=== PATIENT | female | born 1995 | race Caucasian/White ===

== ENCOUNTER → 2017-12-27 11:42 | Outpatient (CLI) | payer SELFPAY ==
[2017-12-27 12:41] LABS: Basophils % 0.3 % (0.1-2.0); Eosinophils # 0.1 K/mm3 (0.0-0.4); Eosinophils % 1.1 % (0.1-12.0); Hematocrit 36.7 % (37.0-47.0); Hemoglobin 11.9 g/dL (12.2-16.2); Lymphocytes # 1.7 K/mm3 (0.7-4.5); Lymphocytes % 24.7 K/mm3 (10-50); Mean Corpuscular HGB Conc 32.4 g/dL (31.8-35.4); Mean Corpuscular Hemoglobin 27.7 pg (27.0-31.2); Mean Corpuscular Volume 85.4 fl (81-99); Mean Platelet Volume 7.1 fl (7.4-10.4); Monocytes # 0.3 K/mm3 (0.1-1.0); Monocytes % 4.9 % (1.7-9.3); Neutrophils # 4.8 K/mm3 (1.8-7.8); Neutrophils % 68.9 % (37.0-80.0); Platelet Count 197 K/mm3 (142-424)
[2017-12-28 07:14] LABS: HIV Screen 4th Generation wRfx Non Reactive (Non Reactive)
[2017-12-28 09:34] LABS: Hepatitis B Surface Antigen Negative (Negative); Hepatitis C Antibody 0.1 s/co ratio (0.0-0.9); Rapid Plasma Reagin Ab Titer Non Reactive (NonRea<1:1); Rubella Antibodies, IgG <0.90 index (Immune >0.99)
== END ==
PROVIDERS: PCP Nurse Practitioner Obstetrics & Gynecology; Visit Provider Nurse Practitioner Obstetrics & Gynecology
DX: Z34.90 Encounter for supervision of normal pregnancy, unspecified, unspecified trimester (principal)
CPT/HCPCS: 36415; 85025; 86592; 86703; 86762; 86850; 87340; 87380; G0432

== ENCOUNTER → 2023-01-17 13:11 | Outpatient (CLI) | payer SELFPAY ==
--- NOTE | 2023-01-17 13:22 | US_ITS ---
FINAL REPORT CLINICAL HISTORY: US OB Complete 20 wk+ Anatomy Scan please use anatomy template FINDINGS: This exam was technically difficult due to positioning. There is a single live intrauterine gestation. Presentation is breech. The cervix is closed and measures 3.4 cm. Placenta is anterior, grade 1. Heart rate identified and measured at 149 beats per minute. movement is noted. Three-vessel cord with satisfactory umbilical cord insertion. Four-chamber heart is noted. brain and ventricles are unremarkable. Chest and diaphragm are unremarkable. ABDOMEN: Both kidneys are unremarkable. Stomach is unremarkable. SPINE: No anomalies identified. Both arms and legs noted. AMNIOTIC FLUID: Appropriate amount. MEASUREMENTS: ULTRASOUND AGE: 21 weeks 4 days. GESTATION AGE: 22 weeks 2 days. ESTIMATED WEIGHT: 460 g GROWTH PERCENTILE: 26% LMP percentile BPD: 4.8 cm corresponding with 20 weeks 5 days. OFD: 7.0 cm corresponding with 22 weeks 5 days. HC: 18.9 cm corresponding with 21 weeks 2 days. AC: 16.8 cm corresponding with 21 weeks 6 days. FL: 3.9 cm corresponding with 22 weeks 3 days. CEREBELLUM: 2.2 cm corresponding with 21 weeks 6 days. HUMERUS: 3.4 cm corresponding with 21 weeks 4 days. HC/AC: 1.13 CI: 69% FL/BPD: 80% FL/AC: 23% IMPRESSION: Single living IUP with an ultrasound age of 21 weeks 4 days. No gross anomalies noted. Reviewed, Interpreted and Dictated by Alek Trotter III, MD Transcribed by Layla Neumann Authenticated and [facility]
[2023-01-17 14:43] LABS: Basophils % 0.4 % (0.1-2.0); Eosinophils # 0.1 K/mm3 (0.0-0.4); Eosinophils % 0.9 % (0.1-12.0); Hematocrit 34.9 % (37.0-47.0); Hemoglobin 11.4 g/dL (12.2-16.2); Lymphocytes % 23.2 % (10-50); Mean Corpuscular HGB Conc 32.7 g/dL (31.8-35.4); Mean Corpuscular Hemoglobin 28.6 pg (27.0-31.2); Mean Corpuscular Volume 87.4 fl (81-99); Mean Platelet Volume 7.7 fl (7.4-10.4); Monocytes # 0.4 K/mm3 (0.1-1.0); Monocytes % 4.5 % (1.7-9.3); Neutrophils % 70.9 % (37.0-80.0); Platelet Count 234 K/mm3 (142-424); Red Cell Distribution Width 13.2 % (11.5-17.5); White Blood Count 8.4 K/mm3 (4.8-10.8)
[2023-01-19 08:17] LABS: Rubella Antibodies, IgG <0.90 index (Immune >0.99)
== END ==
PROVIDERS: PCP Nurse Practitioner Family; Visit Provider Obstetrics & Gynecology
DX: Z34.90 Encounter for supervision of normal pregnancy, unspecified, unspecified trimester (principal); Z36.3 Encounter for antenatal screening for malformations; Z3A.20 20 weeks gestation of pregnancy
CPT/HCPCS: 36415; 76811; 85025; 86762; 86850

== ENCOUNTER → 2023-03-27 12:30 | Outpatient (CLI) | payer SELFPAY ==
--- NOTE | 2023-03-27 12:34 | US_ITS ---
PROCEDURE: US OB BIOPHYSICAL PROFILE CLINICAL INDICATION: sga COMPARISON: FINDINGS: From her last menstrual period she is 32weeks 1day. The following parameters are obtained: Average ultrasound age is 30weeks 6days. Estimated due date by ultrasound is 05/30/2023. Estimated weight is 3lb 7.93oz, 1586 grams.. Sixth percentile. heart rate: 134bpm bpm. BPD: 31weeks 5days OFD: 31weeks 5days HC: 31 weeks 3 days AC: 30 weeks 5 days FL: 29 weeks 6 days HC/AC: 1.07 Cephalic index: 0.76 FL/BPD: 0.73 FL/AC: 0.21 Amniotic fluid index: 9.28cm Qualitative AFV: 2 breathing movements: 2 Gross body movements: 2 Tone: 2 Biophysical profile score: 8 Doppler evaluation of the umbilical artery: SD ratio: 2.73 Resistive index: 0.63 No obvious anomalies evident.Kidneys, three-vessel cord appear normal. Four chamber view, stomach, profile, nasion Placenta: Anterior grade 1 Cervix: 3.3 cm IMPRESSION: 1. Viable fetus in the cephalic presentation with an anterior placenta grade 1. 2. Fluid is within normal limits. Biophysical profile is 8/8. Good breathing movement was seen. 3. The fetus is small at 6 percentile. AC is just 1 week behind. Dictated by: Zack Mujica MD 03/27/2023 17:32 Zack Mujica MD in [place] 03/27/2023 17:32
[2023-03-27 14:57] LABS: Hematocrit 31.6 % (37.0-47.0); Hemoglobin 10.6 g/dL (12.2-16.2)
== END ==
LOC: RAD 12:30
PROVIDERS: PCP Nurse Practitioner Family; Visit Provider Obstetrics & Gynecology
DX: O36.5990 Maternal care for other known or suspected poor fetal growth, unspecified trimester, not applicable or unspecified (principal); Z3A.27 27 weeks gestation of pregnancy
CPT/HCPCS: 36415; 76816; 76819; 76820; 85014; 85018

== ENCOUNTER 2023-05-04 04:48 | Inpatient (IN) | payer SELFPAY ==
[2023-05-04] VITALS (9 sets, daily range): BP systolic 96–119; BP diastolic 53–64; PULSE 60–79; RESP 15–20; TEMP 36.4–36.9; O2SAT 97–100; BMI 32.3; BMI 32.4
[2023-05-04 05:42] LABS: Microscopic, Urine URINE MICROSCOPIC (MICROSCOPIC)
[2023-05-04 05:49] LABS: Basophils % 0.3 % (0.1-2.0); Eosinophils # 0.1 K/mm3 (0.0-0.4); Hematocrit 33.4 % (37.0-47.0); Hemoglobin 10.6 g/dL (12.2-16.2); Lymphocytes # 2.1 K/mm3 (0.7-4.5); Lymphocytes % 30.1 % (10-50); Mean Corpuscular HGB Conc 31.6 g/dL (31.8-35.4); Mean Corpuscular Hemoglobin 27.3 pg (27.0-31.2); Mean Corpuscular Volume 86.3 fl (81-99); Mean Platelet Volume 7.9 fl (7.4-10.4); Monocytes # 0.5 K/mm3 (0.1-1.0); Monocytes % 6.7 % (1.7-9.3); Neutrophils # 4.3 K/mm3 (1.8-7.8); Neutrophils % 61.9 % (37.0-80.0); Platelet Count 216 K/mm3 (142-424); Red Blood Count 3.87 M/mm3 (4.20-5.40); Red Cell Distribution Width 12.7 % (11.5-17.5); White Blood Count 6.9 K/mm3 (4.8-10.8)
[2023-05-04 05:52] LABS: Appearance,Urine CLEAR (Clear); Bilirubin,Urine Negative (Negative); Blood, Urine Negative (Negative); Color,Urine YELLOW (Yellow); Glucose,Urine (UA) Negative (Negative); Ketones,Urine Negative (Negative); Leukocyte Esterase,Urine Negative (Negative); Nitrate,Urine Negative (Negative); PH,Urine 6.5 (5.0-8.5); Protein,Urine Negative (Negative)
[2023-05-04 06:04] LABS: Alanine Aminotransferase 25 U/L (12-78); Albumin Level 3.5 g/dl (3.5-5.0); Albumin/Globulin Ratio 1.3 (1.1-1.8); Alkaline Phosphatase 143 U/L (38-126); Anion Gap 9.5 mEq/L (5-15); Aspartate Amino Transferase 40 U/L (14-36); Bilirubin,Total 0.2 mg/dl (0.2-1.3); Blood Urea Nitrogen 8 mg/dl (7-17); Calcium 8.1 mg/dl (8.4-10.2); Carbon Dioxide 23 mmol/L (22.0-30.0); Chloride 108 mmol/L (98-107); Creatinine Clearance Estimated 184 mL/min (50-200); Estimated Glomerular Filt Rate 98 ml/min (>60); GFR (African American) 119 ML/MIN (>60); Globulin 2.7 g/dL (1.3-3.2); Glucose 80 mg/dl (74-100); Potassium 3.5 mmoL/L (3.5-5.1); Sodium 137 mmol/L (136-145); Total Protein,Serum 6.2 g/dl (6.3-8.2)
[2023-05-04 06:07] LABS: Amphetamine/Metha Screen,Urine Negative ng/ml (<1000)
[2023-05-04 06:08] LABS: Barbiturates Screen,Urine Negative ng/ml (<200); Benzodiazepines Screen,Urine Negative ng/ml (<200)
[2023-05-04 06:09] LABS: Cannabinoid Screen,Urine Negative ng/ml (<50)
[2023-05-04 06:10] LABS: Cocaine Screen,Urine Negative ng/ml (<300); Methadone Screen,Urine Negative ng/ml (<300)
[2023-05-04 06:11] LABS: Opiate Screen,Urine Negative ng/ml (<300)
[2023-05-04 06:12] LABS: Phencyclidine Screen,Urine Negative ng/ml (<25)
[2023-05-04 06:18] LABS: Squamous Epithelial Cell,Urine Occasional #/hpf (0-5); WBC,Urine Occasional #/hpf (0-3)
--- NOTE | 2023-05-04 07:06 | P.PNANES_ITS ---
[facility] Disclaimer: The information contained in this section may have been updated after the patient was seen, as this information can be updated by other users. Medical History Chip ancestry Thrombophlebitis during Surgical History History of section History of cholecystectomy Family History (Updated 05/04/23 @ 05:40 by Zoraida Tran RN) Other No significant family history Social History Smoking Status: Never smoker alcohol intake: never substance use type: denies use current occupational status: unemployed Travel in the last 8 weeks: None housing: apartment current occupational exposures/hazards: No caffeine: No H Anesthesia Checklist Patient Identification Patient Identification: Arm Band Structural Data Admitted From: Inpatient Planned Operative Procedure/s: Repeat C/S Consent for Planned Operative Procedure(s) Verified: Yes Verified Documents: Surgical Consent and History and Physical NPO Status Verified Time NPO: 00:00 Additional verifications Anesthesia Reactions: No Airway Assessment C-Spine Mobility Assessed: Yes TMJ Mobility Assessed: Yes Dentition: Good Dentition Neurological Assessment Level of Consciousness: Awake and Alert Anesthesia Plan Anesthesia Risk discussed: Yes Anesthesia Plan: Verified ASA Class: II Anesthesia Type: Spinal (with Bilateral TAP Block)
--- NOTE | 2023-05-04 07:15 | EXP.OB.APHP ---
OB - H&P: HPI Antepartum History of Present Illness Chief complaint: Repeat History of present illness: Mrs Hope Navarro is a 28 yo at 37w4d who presents to [facility] for scheduled repeat . Growth ultrasound with PDC 04/13/23 demonstrated EFW 22 %ile, AC 9 %ile. [facility] recommended delivery 37-38 weeks. She has had good care. She was a transfer of care from [place] in December 2022. MARGIE based off of 7 week ultrasound. History of Present Criteria for establishing EDC:: LMP confirmed by 1st trimester US care: good care Ultrasounds: normal mid trimester US Obstetrical complications: growth restriction Medical complications: none Labs Blood type: A (+) positive Rubella: nonimmune RPR/VDRL: nonreactive HBsAG: negative PFSH [facility] Disclaimer: The information contained in this section may have been updated after the patient was seen, as this information can be updated by other users. Medical History (Updated 05/04/23 @ 07:24 by Glenny Ying DO) Sikh ancestry with 37 weeks completed gestation Thrombophlebitis during Surgical History History of section History of cholecystectomy Family History Other No significant family history Social History Smoking Status: Never smoker alcohol intake: never substance use type: denies use current occupational status: unemployed Travel in the last 8 weeks: None housing: apartment current occupational exposures/hazards: No caffeine: No Review of Systems Review of Systems Review of systems:: pertinent systems reviewed and negative unless documented below Meds Home Medications and Allergies Home Medications Medication Instructions Recorded Confirmed Type prenat.vits,lei,cym-yueg-rrywh 1 tab PO DAILY Supplement 12/22/22 05/04/23 History omeprazole 20 mg capsule,delayed 20 mg PO DAILY Heartburn 05/04/23 05/04/23 History release New Prescriptions to Start Prescriptions: Allergies Allergy/AdvReac Type Severity Reaction Status Date / Time Sulfa (Sulfonamide Allergy Arrythymia Verified 05/04/23 06:53 Antibiotics) unknown Allergy Mild Uncoded 04/27/23 10:26 OB - H&P: Exam Physical Exam Vital signs: Temp Pulse Resp BP Pulse Ox O2 Del Method 98.3 F 74 17 108/56 L 100 Room Air 05/04/23 05:59 05/04/23 05:59 05/04/23 05:59 05/04/23 05:59 05/04/23 05:59 05/04/23 05:59 Constitutional no acute distress Routine HEENT Exam Head: Present normocephalic and atraumatic Eye: Absent conjunctivae pink ENT: Present mucous membranes moist and dentition normal Routine Neck Exam Present full ROM Routine Respiratory Exam Present CTA bilaterally and normal respiratory effort Routine Cardiovascular Exam Present RRR Routine Abdominal Exam Present soft (Gravid); Absent tenderness Routine Rectal Exam Patient deferred: visual exam Routine Exam Patient deferred: external exam Routine Neurological Exam Present alert, oriented X3 and moving all extremities Routine Psychiatric Exam Present normal affect and cooperative Detailed Labor and Delivery Exam Membranes: intact Baseline heart rate: 125 monitor accelerations: Present monitor decelerations: None longterm variability: Moderate (11-25) OB - Results Labs Labs: Short CBC 05/04/23 Range/Units 05:18 WBC 6.9 (4.8-10.8) K/mm3 Hgb 10.6 L (12.2-16.2) g/dL Hct 33.4 L (37.0-47.0) % Plt Count 216 (142-424) K/mm3 BMP 05/04/23 05:20 Sodium 137 Potassium 3.5 Chloride 108 H Carbon Dioxide 23 BUN 8 Creatinine 0.70 Glucose 80 Calcium 8.1 L Liver Function 05/04/23 Range/Units 05:20 Total Bilirubin 0.2 (0.2-1.3) mg/dl AST 40 H (14-36) U/L ALT 25 (12-78) U/L Alkaline P
--- NOTE | 2023-05-04 07:41 | HMH.PHAINT1 ---
Pharmacy Intervention Comments: MEDICATION RECONCILIATION COMPLETED ON PATIENT USING EXTERNAL FILL HISTORY FROM PHARMACY. -CHLOE MEIER, SCOTTD
--- NOTE | 2023-05-04 08:37 | EXP.OP.NOTE ---
Date of procedure: 05/04/23 Pre-op Diagnosis:: 1. with 37 weeks completed gestation 2. growth restriction 3. History of section 4. History of intrauterine growth restriction in prior , currently 5. Rubella non-immune status, antepartum 6. Orthodoxy ancestry Post-op Diagnosis:: 1. with 37 weeks completed gestation 2. growth restriction 3. History of section 4. History of intrauterine growth restriction in prior , currently 5. Rubella non-immune status, antepartum 6. Orthodoxy ancestry Procedure performed:: Repeat Low Transverse section Surgeon:: Glenny Ying DO Licensed Life And Health Agent(s):: Zack Mujica MD SURGERY AID:: Other Anesthesia: spinal Estimated blood loss (mL): 400 Clinical Note:: Mrs Hope Navarro is a 28 yo at 37w4d who presents to [facility] for scheduled repeat . Growth ultrasound with PDC 04/13/23 demonstrated EFW 22 %ile, AC 9 %ile. [facility] recommended delivery 37-38 weeks. She has had good care. She was a transfer of care from [place] in December 2022. MARGIE based off of 7 week ultrasound. Operative findings:: 1. Live female baby (baby's name is Savana) weighing 5 lb 12 oz, APGARs 8, 9 2. Nuchal cord x 1 was easily reduced 3. Grossly normal appearing uterus, bilateral fallopian tubes and bilateral ovaries Operative note:: The risks, benefits and alternatives of the procedure were reviewed with the patient. Informed consent was obtained. Patient was taken to the operating room where spinal anesthesia was placed. The patient received 2 grams of Ancef preoperatively. Patient was placed in dorsal supine position with a leftward tilt. SCDs in place. Loza catheter had been placed and was draining clear urine prior to the start of the procedure. heart tones were obtained. Patient was then prepped and draped in normal sterile fashion. Allis clamp test was performed to ensure adequate anesthesia. A Pfannenstiel skin incision was made 2 cm above pubic symphysis, above prior Pfannenstiel scar. This was carried through to underlying layer of fascia. Fascia was incised in midline, extended laterally with Marino scissors. Superior aspect of fascial incision was grasped with two Tesfaye clamps, elevated up, and rectus muscle dissected off bluntly and sharply with Marino scissors. Inferior aspect of fascial incision was grasped with two Tesfaye clamps, elevated up, and rectus muscle dissected off bluntly and sharply with Marino scissors. The rectus muscle was then in the midline and the peritoneum was entered bluntly with a digit. Peritoneal incision was then extended superiorly and inferiorly with good visualization of the bladder. Hernan retractor was inserted. Metzenbaum scissors were used to create Bladder flap. The lower uterine segment was incised in a transverse fashion. Clear amniotic fluid was noted. Head was delivered without difficulty. Nuchal x 1 was easily reduced. Remainder of body was delivered without difficulty. Mouth and nares were bulb suctioned. Spontaneous cry was noted. Delayed cord clamping was performed for 60 seconds. The umbilical cord was clamped and cut. The was handed to awaiting pediatric staff in stable condition. Dr. Bird was present. Apgars were 8(1 min), 9(5 min). Cord blood was obtained. Gentle traction on the umbilical cord and uterine fundal massage delivered the placenta. Placenta was intact. Uterus was cleared of all clots and debris with a moist laparotomy sponge. Corners of the uterine incision were grasped with Allis clamps. The uterine incision was reapproximated with # 1 Vicryl suture in a running, locked stitch. Second layer of the same stitch was used to imbricate the incision. 0 Vicryl suture was used in a running, locking stitch to reapproximate vesicouterine peritoneum. Excellent hemostasis was noted. Posterior cul-de-sac was cleaned with moist laparotomy sponge. Gutters cleared of all clots and debris with
--- NOTE | 2023-05-04 11:00 | EXP.ANES.II ---
[facility] Anesthesia Record Part II Anesthesia Record Part II Discharge Time: 08:50 Destination: Obstetric PACU nurse assessment reviewed?: Yes Patient Condition:: Good Anesthesia Complications:: None Swallowing reflex intact?: Yes Cyanosis?: No Blood Pressure: 110/53 Pulse Rate: 66 Temperature: 97.6 F Mental Status: Alert & Oriented Pain level:: 0 Nausea and/or vomitting:: None Intake, IV Amount: 0
[2023-05-04 12:55] LABS: Microscopic,Cath URINE MICROSCOPIC (MICROSCOPIC)
[2023-05-04 14:41] LABS: Appearance,Urine/Cath CLEAR (Clear); Bilirubin,Cath Negative (Negative); Blood, Urine/Cath Negative (Negative); Color,Urine/Cath YELLOW (Yellow); Glucose,Urine/Cath (UA) Negative (Negative); Ketones,Urine/Cath TRACE (Negative); Leukocyte Esterase,Cath Negative (Negative); Nitrate,Cath Negative (Negative); PH,Urine/Cath 7.5 (5.0-8.5); Protein,Urine/Cath Negative (Negative); Urobilinogen,Cath 0.2 EU/dl (0.2)
[2023-05-04 14:57] LABS: WBC,Urine/Cath Occasional #/hpf (0-3)
--- NOTE | 2023-05-04 17:56 | EXP.NB.FU ---
Date: 05/04/23 Time: 08:45 Comment:: [place] resuscitation note: delivered via secondary to IUGR and multiple repeat C-sections. Uncomplicated noted, retained on the abdomen for 1 minute to enhance umbilical flow. Handed to pediatrics crying. Resuscitation included towel drying, stimulation. Initial Apgars 8, 1 off for tone and color, initial physical exam unremarkable. 5-minute 9, transition to nursery in good condition. [place] Follow-Up Objective Objective: Last Vital Signs:: Last Vital Signs Temp 97.5 F L 05/04/23 16:34 Pulse 60 05/04/23 16:34 Resp 20 05/04/23 16:34 BP 113/56 L 05/04/23 16:34 Pulse Ox 99 05/04/23 16:34 O2 Del Method Room Air 05/04/23 09:30 Test Results for Last 24 Hours: Laboratory Results - last 24 hr 05/04/23 05:18: WBC 6.9, RBC 3.87 L, Hgb 10.6 L, Hct 33.4 L, MCV 86.3, MCH 27.3, MCHC 31.6 L, RDW 12.7, Plt Count 216, MPV 7.9, Neut % (Auto) 61.9, Lymph % (Auto) 30.1, [place] % (Auto) 6.7, Eos % (Auto) 1.0, Baso % (Auto) 0.3, Neut # (Auto) 4.3, Lymph # (Auto) 2.1, [place] # (Auto) 0.5, Eos # (Auto) 0.1, Baso # (Auto) 0.0, Urine Color Yellow, Urine Appearance Clear, Urine pH 6.5, Ur Specific [place] 1.020, Urine Protein Negative, Urine Glucose (UA) Negative, Urine Ketones Negative, Urine Blood Negative, Urine Nitrate Negative, Urine Bilirubin Negative, Urine Urobilinogen 1.0, Ur Leukocyte Esterase Negative, Urine RBC None, Urine WBC Occasional, Ur Squamous Epith Cells Occasional, Urine Bacteria None, Urine Opiates Screen Negative, Urine Methadone Screen Negative, Ur Barbituates Screen Negative, Ur Phencyclidine Scrn Negative, Ur Amphetamines Screen Negative, U Benzodiazepines Scrn Negative, Urine Cocaine Screen Negative, U Marijuana (THC) Screen Negative, Blood Type A Positive, Antibody Screen Negative, Crossmatch (AHG) See Detail 05/04/23 05:20: Sodium 137, Potassium 3.5, Chloride 108 H, Carbon Dioxide 23, Anion Gap 9.5, BUN 8, Creatinine 0.70, Estimated Creat Clear 184, Estimated GFR 98, Est GFR ( Amer) 119, Glucose 80, Calcium 8.1 L, Total Bilirubin 0.2, AST 40 H, ALT 25, Alkaline Phosphatase 143 H, Total Protein 6.2 L, Albumin 3.5, Globulin 2.7, Albumin/Globulin Ratio 1.3 05/04/23 07:25: Urine Color Yellow, Urine Appearance Clear, Urine pH 7.5, Ur Specific [place] 1.010, Urine Protein Negative, Urine Glucose (UA) Negative, Urine Ketones Trace, Urine Blood Negative, Urine Nitrate Negative, Urine Bilirubin Negative, Urine Urobilinogen 0.2, Ur Leukocyte Esterase Negative, Urine RBC None, Urine WBC Occasional, Ur Squamous Epith Cells None, Urine Bacteria None [facility] Plan Plan Medications: Current Medications Acetaminophen (Acetaminophen 500mg Tab) 1,000 mg PO Q6H [place] Stop: 06/03/23 08:59 Last Admin: 05/04/23 17:09 Dose: 1,000 mg Al Hydrox/Mg Hydrox/Simethicone (Aluminum/Magnesium/Simethicone 30ml Udc) 30 ml PO Q4HP PRN PRN Reason: Dyspepsia Stop: 06/03/23 08:51 Benzocaine/Menthol (Benzocaine-Menthol [place] 56gm Can) 0 gm TP NEEDED PRN PRN Reason: Vaginal Irritation Stop: 06/03/23 08:51 Diphenhydramine HCl (Diphenhydramine 25mg Capsule) 25 mg PO Q6HP PRN PRN Reason: Itching Stop: 06/03/23 08:51 Emollient Ointment (Lanolin Cream 40gm) 0 gm TP NEEDED PRN PRN Reason: Breast Tenderness Stop: 06/03/23 08:51 Glycerin (Glycerin Adult 3gm Supp) 3 gm RC NEEDED PRN PRN Reason: Constipation Stop: 06/03/23 08:51 Hydromorphone HCl (Hydromorphone 2mg/Ml Syringe) 2 mg IV Q3HP PRN PRN Reason: Severe Pain (7-10) Stop: 05/05/23 08:52 Hydromorphone HCl (Hydromorphone 2mg/Ml Syringe) 1 mg IV Q3HP PRN PRN Reason: Moderate Pain (4-6) Stop: 05/05/23 08:52 Sodium Chloride (Sod Chlor 0.9% 250ml Bag) 250 mls @ 25 mls/hr IV .Q10H [facility] Stop: 05/05/23 04:59 Lactated Ringer's (Lactated Ringer's 1000 Ml Bag) 1,000 mls @ 125 mls/hr IV .Q8H [place] Stop: 06/03/23 08:59 Last Admin: 05/04/23 09:30 Dose: 125 mls/hr Cefazolin Sodium 2 gm/ Sodium (Chloride) 10
[2023-05-05 00:09] VITALS: BP 97/56; PULSE 64; RESP 17; TEMP 36.7
[2023-05-05 04:08] VITALS: BP 96/50; PULSE 69; RESP 17; TEMP 36.8; O2SAT 98
[2023-05-05 06:49] LABS: Basophils % 0.3 % (0.1-2.0); Eosinophils # 0.1 K/mm3 (0.0-0.4); Eosinophils % 0.6 % (0.1-12.0); Hematocrit 29.8 % (37.0-47.0); Hemoglobin 9.8 g/dL (12.2-16.2); Lymphocytes # 1.6 K/mm3 (0.7-4.5); Lymphocytes % 17.3 % (10-50); Mean Corpuscular Hemoglobin 28.3 pg (27.0-31.2); Monocytes # 0.7 K/mm3 (0.1-1.0); Monocytes % 7.1 % (1.7-9.3); Neutrophils % 74.7 % (37.0-80.0); Platelet Count 207 K/mm3 (142-424); Red Blood Count 3.47 M/mm3 (4.20-5.40); Red Cell Distribution Width 12.7 % (11.5-17.5); White Blood Count 9.4 K/mm3 (4.8-10.8)
--- NOTE | 2023-05-05 08:12 | EXP.DC.SUM ---
General Admission date:: 05/04/23 Discharge date: 05/05/23 HPI HPI HPI: POD # 1 s/p RLTCS Patient resting comfortably this morning. Pain controlled. She is breast feeding. Lochia is appropriate. She is voiding without difficulty and passing flatus. Tolerating regular diet. Denies fever/chills, chest pain and shortness of breath. No headaches or vision changes. Denies swelling. Ambulating well ad gary. She is concerned about constipation. She states she was horribly constipated after her last . Hospital Course Hospital Course Hospital Course: Mrs Hope Navarro is a 28 yo at 37w4d who presents to [facility] for scheduled repeat . Growth ultrasound with PDC 04/13/23 demonstrated EFW 22 %ile, AC 9 %ile. [facility] recommended delivery 37-38 weeks. She has had good care. She was a transfer of care from [place] in December 2022. MARGIE based off of 7 week ultrasound. She underwent repeat on 05/04/23. She delivered a live baby girl (Savana) weighing 5 lb 12 oz. APGARs 8, 9. EBL 400 mL She did well postperatively. Pain controlled. Appropriate lochia. She is breast feeding. Voiding without difficulty and passing flatus. Tolerating regular diet and ambulating well ad gary. Vital signs stable, afebrile. Heart regular rate and rhythm. Lungs clear to auscultation. Abdomen soft, appropriate tenderness to palpation. No lower extremity edema. Normal hospital course. She was discharged to home on POD # 1. Discussed Miralax BID and increasing water intake and fresh fruits to help with constipation. She was instructed to follow-up in the office in 2 weeks or sooner if needed. Exam Data for Last 24 hours Vital signs and Labs for Last 24 Hours: Temp Pulse Resp BP Pulse Ox O2 Del Method 98.2 F 69 17 96/50 L 98 Room Air 05/05/23 04:08 05/05/23 04:08 05/05/23 04:08 05/05/23 04:08 05/05/23 04:08 05/05/23 04:08 Laboratory Results - last 24 hr 05/04/23 07:25: Urine Color Yellow, Urine Appearance Clear, Urine pH 7.5, Ur Specific [place] 1.010, Urine Protein Negative, Urine Glucose (UA) Negative, Urine Ketones Trace, Urine Blood Negative, Urine Nitrate Negative, Urine Bilirubin Negative, Urine Urobilinogen 0.2, Ur Leukocyte Esterase Negative, Urine RBC None, Urine WBC Occasional, Ur Squamous Epith Cells None, Urine Bacteria None 05/05/23 06:18: WBC 9.4 D, RBC 3.47 L, Hgb 9.8 L, Hct 29.8 L, MCV 86.0, MCH 28.3, MCHC 33.0, RDW 12.7, Plt Count 207, MPV 8.0, Neut % (Auto) 74.7, Lymph % (Auto) 17.3, [place] % (Auto) 7.1, Eos % (Auto) 0.6, Baso % (Auto) 0.3, Neut # (Auto) 7.0, Lymph # (Auto) 1.6, [place] # (Auto) 0.7, Eos # (Auto) 0.1, Baso # (Auto) 0.0 I & O for Last 24 hours: Intake & Output 05/02/23 05/03/23 05/04/23 05/05/23 23:59 23:59 23:59 23:59 Intake Total 0 / 0 Output Total 1800 / 1800 Balance -1800 / -1800 Weight 219 lb 0.009 oz Constitutional Constitutional: no acute distress *Routine HEENT Exam Head: Present normocephalic and atraumatic Eye: Absent conjunctivae pink ENT: Present mucous membranes moist and dentition normal *Routine Neck Exam Neck: Present full ROM *Routine Respiratory Exam Respiratory: Present CTA bilaterally and normal respiratory effort *Routine Cardiovascular Exam Cardiovascular: Present RRR *Routine Abdominal Exam Abdominal: Present soft and normoactive bowel sounds; Absent tenderness or distended Comments: Uterine fundus firm and below umbilicus, pfannenstiel incision clean/dry/intact with steri strips in place *Routine Rectal Exam Patient deferred: visual exam *Routine Exam Patient deferred: external exam *Routine Extremities Exam Extremities: Absent edema or calf tenderness *Routine Neurological Exam Neurological: Present alert, oriented X3 and moving all extremities Routine Psychiatric Exam Psychiatric: Present normal affect and cooperative Results Data Completed and Pending Labs on day of discharge: Labs from last 24 hours 05/05/23 05/04/23 06:18 07:2
[2023-05-05 08:20] VITALS: BP 98/52; PULSE 69; RESP 20; TEMP 36.8; O2SAT 99
== END 2023-05-05 12:05 | disposition home or self-care (01) | DRG 788 ==
PROVIDERS: Admitting Provider Obstetrics & Gynecology; PCP Nurse Practitioner Family; Visit Provider Obstetrics & Gynecology
DX: O34.211 Maternal care for low transverse scar from previous cesarean delivery (principal); Z3A.37 37 weeks gestation of pregnancy; Z37.0 Single live birth; O69.81X0 Labor and delivery complicated by cord around neck, without compression, not applicable or unspecified; N85.8 Other specified noninflammatory disorders of uterus; O36.5930 Maternal care for other known or suspected poor fetal growth, third trimester, not applicable or unspecified
CPT/HCPCS: 59514; 36415; 59025; 80053; 80305; 81001; 82800; 85025; 86850; 94761; 96374; C9290; G0283; J2405

== ENCOUNTER → 2023-05-22 09:51 | Outpatient (CLI) | payer SELFPAY ==
[2023-05-22 10:10] LABS: Basophils # 0.1 K/mm3 (0-0.2); Basophils % 1.1 % (0.1-2.0); Eosinophils # 0.3 K/mm3 (0.0-0.4); Eosinophils % 5.1 % (0.1-12.0); Hematocrit 39.2 % (37.0-47.0); Hemoglobin 12.7 g/dL (12.2-16.2); Lymphocytes # 2.9 K/mm3 (0.7-4.5); Lymphocytes % 46.7 % (10-50); Mean Corpuscular HGB Conc 32.4 g/dL (31.8-35.4); Mean Corpuscular Hemoglobin 27.6 pg (27.0-31.2); Mean Corpuscular Volume 85.3 fl (81-99); Mean Platelet Volume 7.5 fl (7.4-10.4); Monocytes # 0.4 K/mm3 (0.1-1.0); Monocytes % 6.2 % (1.7-9.3); Neutrophils # 2.5 K/mm3 (1.8-7.8); Neutrophils % 40.9 % (37.0-80.0); Platelet Count 285 K/mm3 (142-424); Red Blood Count 4.59 M/mm3 (4.20-5.40); Red Cell Distribution Width 12.1 % (11.5-17.5); White Blood Count 6.2 K/mm3 (4.8-10.8)
[2023-05-22 11:03] LABS: Alanine Aminotransferase 22 U/L (12-78); Albumin Level 4.4 g/dl (3.5-5.0); Albumin/Globulin Ratio 1.5 (1.1-1.8); Alkaline Phosphatase 69 U/L (38-126); Anion Gap 10.5 mEq/L (5-15); Aspartate Amino Transferase 29 U/L (14-36); Bilirubin,Total 0.3 mg/dl (0.2-1.3); Blood Urea Nitrogen 14 mg/dl (7-17); Calcium 9.7 mg/dl (8.4-10.2); Carbon Dioxide 30 mmol/L (22.0-30.0); Chloride 103 mmol/L (98-107); Estimated Glomerular Filt Rate 53 ml/min (>60); GFR (African American) 64 ML/MIN (>60); Glucose 87 mg/dl (74-100); Potassium 4.5 mmoL/L (3.5-5.1); Sodium 139 mmol/L (136-145); Total Protein,Serum 7.4 g/dl (6.3-8.2)
== END ==
LOC: LAB 09:52
PROVIDERS: PCP Nurse Practitioner Family; Visit Provider Obstetrics & Gynecology
DX: N93.9 Abnormal uterine and vaginal bleeding, unspecified (principal)
CPT/HCPCS: 36415; 80053; 85025

== ENCOUNTER → 2023-05-23 09:29 | Outpatient (CLI) | payer SELFPAY ==
--- NOTE | 2023-05-23 09:32 | US_ITS ---
PROCEDURE: US PELVIC CLINICAL INDICATION: Pelvic pain 2 weeks post COMPARISON: No exams were available for comparison FINDINGS: Transabdominal sonographic images of the pelvis were obtained. The uterus is retroverted and retroflexed and measures 7.9 cm x 5.9 cm x 8.3 cm. There is fluid within the endometrial cavity that appears to be blood. It measures up to 3.9 cm at the fundus. The rest of the endometrial cavity appears filled with clot 1 cm wide. Right ovary measures 2.3 cm x 2.1 cm x 1.4 cm Left ovary measures 4.1 cm x 2.2 cm x 1.7 cm. Both ovaries are seen and appear normal. There is Doppler flow to both ovaries. No fluid in the cul-de-sac. IMPRESSION: 1. Retroverted retroflexed uterus with what appears to be blood clot within the endometrial cavity. It measures up to 4 cm at the fundus. 2. Both ovaries are seen and appear normal. 3. There is fluid-filled bowel around the right ovary. 4. If the patient is not improving, a transvaginal ultrasound may allow for a better look at the endometrial cavity and Caesarean section scar. Dictated by: Zack Mujica MD 05/23/2023 16:52 Zack Mujica MD in [place] 05/23/2023 16:52
== END ==
LOC: RAD 09:30
PROVIDERS: PCP Nurse Practitioner Family; Visit Provider Obstetrics & Gynecology
DX: R10.2 Pelvic and perineal pain (principal); O86.12 Endometritis following delivery
CPT/HCPCS: 76856

== ENCOUNTER → 2023-05-24 14:20 | Outpatient (CLI) | payer SELFPAY ==
--- NOTE | 2023-05-24 14:22 | CA_ITS ---
APPROVED REPORT EXAM: Comprehensive 2D, Doppler, and color-flow Echocardiogram Medication Aid: Kandy Del Cid RVT Ht: 5 ft 9 in Wt: 203lbs BSA: 2.08 BP: 108/65 mmHg Indications: cp,palps,fatigue,soa,hypotension 2D Dimensions LVOT 2.14 cm (M/F) 1.5-2.5 LA Volume 41.40 mL LA Volume Index 19.90 mL/m2 (M/F) 16-34 M-Mode Dimensions RVDd 1.74 cm (0.9-2.6) LA Diam 2.72 cm (1.9-4.0) LVDd 4.66 cm (3.5-5.7) Ao Diam 2.72 cm (2.0-3.7) LVDs 2.98 cm (3.5-5.7) IVSd 0.94 cm (0.6-1.1) PWd 0.57 cm (0.6-1.1) EF (Teich) 65.70% FS 36.10% EDV (Teich) 100.30 mL TAPSE 2.48 (<1.7) ESV (Teich) 34.40 mL LV Diastology E Decel Time 270.00 (160-240 msec) E/A Ratio 1.7 MED E' 11.20 (< 7 cm/sec) E'/MED E' Ratio 7.13 (>14) LAT E' 17.90 (<10 cm/sec) E/LAT E' Ratio 4.46 (>14) Aortic Valve AO Peak GR. 4.20 mmHg Mitral Valve MV E Max Long. 80.00 (40-130 cm/s) MV A Velocity 47.00 (40-130 cm/s) E/A Ratio 1.70 MV Decel. Time 270.00 (160-240 ms) MV PHT 79.00 ms Pulmonary Valve PV Peak Velocity 91.00 (50-150 cm/s) Tricuspid Valve TR P. Velocity 210.00 cm/s RAP Estimate 10.00 mmHg RVSP 27.60 mmHg Left Ventricle The left ventricle is normal size. The left ventricular systolic function is normal. The left ventricular ejection fraction is within the normal range. There is normal left ventricular wall thickness. There is normal LV segmental wall motion. The left ventricular diastolic function is normal. LVEF is 55-60%. Right Ventricle Right ventricle is mildly dilated. The right ventricular systolic function is normal. Atria The left atrium size is normal. The right atrium size is normal. There is no Doppler evidence of interatrial shunt. Aortic Valve The aortic valve is normal in structure. There is no aortic valvular stenosis. No aortic regurgitation is present. Mitral Valve The mitral valve is normal in structure. No evidence of mitral valve stenosis. There is no mitral valve regurgitation noted. Tricuspid Valve The tricuspid valve leaflets are thin and pliable. Trace tricuspid regurgitation. RVSP is normal. Pulmonic Valve The pulmonary valve is normal in structure. Trace pulmonic regurgitation. Great Vessels The aortic root is normal in size. IVC is normal in size and collapses >50% with inspiration. Pericardium There is no pericardial effusion. Other Information Study Quality: Adequate Conclusion Normal biventricular systolic function. Mild RV dilatation. No significant valvular disease. Electronically signed by : Siomara Hylton, 05/25/2023 13:38:06
[2023-05-24 15:29] LABS: Basophils # 0.1 K/mm3 (0-0.2); Basophils % 0.8 % (0.1-2.0); Eosinophils # 0.4 K/mm3 (0.0-0.4); Eosinophils % 5.4 % (0.1-12.0); Hematocrit 41.3 % (37.0-47.0); Lymphocytes % 45.8 % (10-50); Mean Corpuscular HGB Conc 31.5 g/dL (31.8-35.4); Mean Corpuscular Hemoglobin 27.8 pg (27.0-31.2); Mean Corpuscular Volume 88.2 fl (81-99); Mean Platelet Volume 7.5 fl (7.4-10.4); Monocytes # 0.4 K/mm3 (0.1-1.0); Monocytes % 6.1 % (1.7-9.3); Neutrophils # 2.8 K/mm3 (1.8-7.8); Neutrophils % 41.9 % (37.0-80.0); Platelet Count 258 K/mm3 (142-424); Red Blood Count 4.69 M/mm3 (4.20-5.40); White Blood Count 6.6 K/mm3 (4.8-10.8)
[2023-05-24 15:43] LABS: D-Dimer 0.89 ug/mL (0.0-0.5)
[2023-05-24 16:03] LABS: Alanine Aminotransferase 20 U/L (12-78); Albumin Level 4.2 g/dl (3.5-5.0); Alkaline Phosphatase 61 U/L (38-126); Anion Gap 11.3 mEq/L (5-15); Aspartate Amino Transferase 28 U/L (14-36); Bilirubin,Indirect 0.2 mg/dL (0.0-0.9); Bilirubin,Total 0.2 mg/dl (0.2-1.3); Bilirubin,Unconjugated 0.4 mg/dL (0.0-1.1); Blood Urea Nitrogen 13 mg/dl (7-17); Calcium 9.3 mg/dl (8.4-10.2); Carbon Dioxide 30 mmol/L (22.0-30.0); Chloride 105 mmol/L (98-107); Estimated Glomerular Filt Rate 53 ml/min (>60); GFR (African American) 64 ML/MIN (>60); Glucose 78 mg/dl (74-100); Potassium 4.3 mmoL/L (3.5-5.1); Sodium 142 mmol/L (136-145)
[2023-05-24 16:15] LABS: Troponin I < 0.01 ng/ml (0.00-0.034)
[2023-05-24 16:19] LABS: Free T4 (Free Thyroxine) 0.86 ng/dl (0.78-2.19)
[2023-05-24 16:32] LABS: Thyroid Stimulating Hormone 0.56 uIU/mL (0.465-4.68)
== END ==
LOC: LAB 14:21
PROVIDERS: PCP Nurse Practitioner Family; Visit Provider Internal Medicine
DX: R06.02 Shortness of breath (principal); R07.89 Other chest pain; R00.2 Palpitations; R42 Dizziness and giddiness; R51.9 Headache, unspecified; I63.9 Cerebral infarction, unspecified
CPT/HCPCS: 36415; 80048; 80076; 84439; 84443; 84484; 85025; 85378; 93306

== ENCOUNTER → 2023-05-29 08:34 | Outpatient (CLI) | payer SELFPAY ==
--- NOTE | 2023-05-29 08:40 | CT_ITS ---
FINAL REPORT TECHNIQUE: The patient was injected with IV contrast. Axial images were obtained through the chest in a PE protocol. 3-D reconstruction images were also performed. Individualized dose reduction techniques using automated exposure control or adjustment of the MA and/or KV according to patient's size were employed. CLINICAL HISTORY: abnormal ekg, chest pain COMPARISON: None FINDINGS: Mediastinal vasculature is adequately opacified. No pulmonary artery filling defects are identified to suggest PE. There is no aortic dissection. There is no axillary adenopathy. There is no hilar or mediastinal adenopathy. The heart size is normal. There is no pericardial or pleural effusion. No suspicious infiltrate or nodule is identified. There is minimal scarring in the posterior aspect of the left upper lobe Limited images of the upper abdomen are unremarkable. IMPRESSION: No pulmonary embolus or dissection. Reviewed, Interpreted and Dictated by See Nichole MD Transcribed by Lorie Solorzano Authenticated and [facility]
== END ==
PROVIDERS: PCP Nurse Practitioner Family; Visit Provider Nurse Practitioner Family
DX: R06.02 Shortness of breath (principal); R07.89 Other chest pain; R00.2 Palpitations; R42 Dizziness and giddiness; R94.31 Abnormal electrocardiogram [ECG] [EKG]
CPT/HCPCS: 71275; 93225; Q9967

== ENCOUNTER 2023-05-30 06:01 | Day surgery (SDC) | payer SELFPAY ==
[2023-05-30 06:27] VITALS: BMI 30.1
[2023-05-30 06:36] VITALS: BP 111/70; PULSE 64; RESP 16; TEMP 36.9; O2SAT 100
--- NOTE | 2023-05-30 06:50 | EXP.ANES.CKL ---
[facility] Disclaimer: The information contained in this section may have been updated after the patient was seen, as this information can be updated by other users. Medical History IVON (acute kidney injury) Restorationist ancestry Feeling of chest tightness Headache Maternal care for other known or suspected poor growth, third trimester, not applicable or unspecified Postoperative pain Shortness of breath Thrombophlebitis during Surgical History History of section History of cholecystectomy Family History Other No significant family history Social History (Updated 05/30/23 @ 06:32 by Jennifer Gray RN) Smoking Status: Never smoker alcohol intake: never substance use type: denies use current occupational status: unemployed Travel in the last 8 weeks: None household members: family housing: apartment lives independently: No marital status: education level: middle school service: No care home: No current occupational exposures/hazards: No caffeine: No do you feel safe at home: Yes victim of physical abuse: No victim of emotional abuse: No victim of sexual abuse: No would you like helpful sources: No [facility] Anesthesia Checklist Patient Identification Patient Identification: Arm Band and Verbal (Name & ) Structural Data Admitted From: Home Planned Operative Procedure/s: D&C Consent for Planned Operative Procedure(s) Verified: Yes Verified Documents: Surgical Consent Additional verifications Anesthesia Reactions: No Hx Blood Transfusions: No Blood Transfusion Reaction: No Cardiovascular Assessment Peripheral Edema: No Airway Assessment Mallampati Score:: Class I C-Spine Mobility Assessed: Yes TMJ Mobility Assessed: Yes Dentition: Edentulous Neurological Assessment Level of Consciousness: Awake and Alert Hx Seizures: No Numbness or tingling in extremities: No Anesthesia Plan Anesthesia Risk discussed: Yes ASA Class: II Anesthesia Type: IV sedation Preoperative Comments Pre-Operative Comments: Pt requesting sedation vs general anesthesia
[2023-05-30 07:02] LABS: Urine Pregnancy, HCG Qual. Negative (Negative)
--- NOTE | 2023-05-30 07:22 | EXP.HP ---
History of Present Illness *Admission Date: 05/30/23 *Reason for visit:: pelvic pressure, RLQ/suprapubic pain *History of present illness: Mrs Hope Navarro is a 28 yo who presents to [facility] for scheduled procedure. She underwent repeat on 05/04/23. She delivered a live baby girl (Savana) weighing 5 lb 12 oz. APGARs 8, 9. EBL 400 mL. She did well postperatively. Pain controlled. Appropriate lochia while in the hospital. She is breast feeding. About 1 week after delivery she complained of pelvic pressure, RLQ/suprapubic pain and passage of large black clots. No fever/chills. She was treated with a course of antibiotics for possible endometritis. Symptoms did not improve. She reported continued symptoms and passage of black clots. She was treated with course of Cytotec with little relief. She also complains of associated fatigue, weakness and headaches. She also reported shortness of air with activity and chest tightness when she lies down. She also admitted cardiac symptoms have been present for at least a year and were present prior to . She was referred to cardiology and evaluation was performed. She was given cardiac clearance for surgery. Pelvic ultrasound 05/23/23 demonstrated retroverted retroflexed uterus with what appears to be blood clot within the endometrial cavity. It measures up to 4 cm at the fundus. Both ovaries are seen and appear normal. [facility] Disclaimer: The information contained in this section may have been updated after the patient was seen, as this information can be updated by other users. Medical History (Updated 05/30/23 @ 07:33 by Glenny Ying DO) IVON (acute kidney injury) Chip ancestry Feeling of chest tightness Headache Maternal care for other known or suspected poor growth, third trimester, not applicable or unspecified Pelvic pain Pelvic pressure in female Postoperative pain state Shortness of breath Thrombophlebitis during Surgical History (Updated 05/30/23 @ 07:33 by Glenny Ying DO) History of section History of cholecystectomy S/P Family History Other No significant family history Social History Smoking Status: Never smoker alcohol intake: never substance use type: denies use current occupational status: unemployed Travel in the last 8 weeks: None household members: family housing: apartment lives independently: No marital status: education level: middle school service: No care home: No current occupational exposures/hazards: No caffeine: No do you feel safe at home: Yes victim of physical abuse: No victim of emotional abuse: No victim of sexual abuse: No would you like helpful sources: No Review of Systems Review of Systems Review of systems:: pertinent systems reviewed and negative unless documented below Constitutional Constitutional: Reports fatigue, Reports headache(s), Reports lethargy and Reports weakness ENT Ears, Nose, Mouth, and Throat: Reports headache(s) *Cardiovascular Comments: + shortness of air, + chest tightness when lying supine *Genitourinary Genitourinary: Reports pelvic pain *Neurologic Neurologic: Reports headache(s) and Reports weakness Endocrine Endocrine: Reports fatigue Meds Home Medications and Allergies Home Medications Medication Instructions Recorded Confirmed Type vit no.95-ferrous 1 tab PO DAILY Supplement 05/04/23 05/30/23 History fumarate 28 mg-folic acid 800 mcg tablet () ibuprofen 400 mg tablet 800 mg PO Q8H Pain 05/30/23 05/30/23 History misoprostol 200 mcg tablet 200 mcg PO Q6H bleeding 05/30/23 05/30/23 History (Cytotec) New Prescriptions to Start Prescriptions: Allergies Allergy/AdvReac Type Severity Reaction Status Date / Time Sulfa (Sulfon
[2023-05-30 08:35] VITALS: BP 101/58; PULSE 70; RESP 17; TEMP 36.2; O2SAT 98
[2023-05-30 08:45] VITALS: BP 96/54; PULSE 67; RESP 16; O2SAT 98
[2023-05-30 08:55] VITALS: BP 97/63; PULSE 71; RESP 16; O2SAT 99
[2023-05-30 09:05] VITALS: BP 101/61; PULSE 57; RESP 16; TEMP 36.6; O2SAT 99
--- NOTE | 2023-05-30 09:14 | EXP.OP.NOTE ---
Date of procedure: 05/30/23 Pre-op Diagnosis:: 1. state, 3 weeks 5 days s/p repeat 2. RLQ pain 3. Pelvic pain 4. Pelvic pressure Post-op Diagnosis:: 1. state, 3 weeks 5 days s/p repeat 2. RLQ pain 3. Pelvic pain 4. Pelvic pressure Procedure performed:: Dilation and curettage Surgeon:: Glenny Ying DO Arcade Game Technician(s):: N/a CHISEL TRIMMER:: Other Anesthesia: MAC Estimated blood loss (mL): 5 Clinical Note:: Mrs Hope Navarro is a 28 yo who presents to [facility] for scheduled procedure. She underwent repeat on 05/04/23. She delivered a live baby girl (Savana) weighing 5 lb 12 oz. APGARs 8, 9. EBL 400 mL. She did well postperatively. Pain controlled. Appropriate lochia while in the hospital. She is breast feeding. About 1 week after delivery she complained of pelvic pressure, RLQ/suprapubic pain and passage of large black clots. No fever/chills. She was treated with a course of antibiotics for possible endometritis. Symptoms did not improve. She reported continued symptoms and passage of black clots. She was treated with course of Cytotec with little relief. She also complains of associated fatigue, weakness and headaches. She also reported shortness of air with activity and chest tightness when she lies down. She also admitted cardiac symptoms have been present for at least a year and were present prior to . She was referred to cardiology and evaluation was performed. She was given cardiac clearance for surgery. Pelvic ultrasound 05/23/23 demonstrated retroverted retroflexed uterus with what appears to be blood clot within the endometrial cavity. It measures up to 4 cm at the fundus. Both ovaries are seen and appear normal. Operative findings:: 1. Uterus retroverted, normal size and shape. No adnexal masses palpated 2. Moderate amount of red and burgundy colored fluid with endometrial tissue removed from endometrial cavity Operative note:: Risks, benefits and alternatives were discussed with the patient. Risks include but are not limited to bleeding, infection, uterine perforation and VTE. Patient voiced understanding and agreed to proceed. She was wheeled back to the operating room and placed under MAC without difficulty. She was placed in dorsal lithotomy position and prepped and draped in the normal sterile fashion. Straight catheter was used to drain the bladder. A bimanual exam was performed. A weighted Auvard was placed in the vaginal vault. Single tooth tenaculum was placed on anterior lip of the cervix. Uterus sounded to 10. Sequential Kendrick dilators were used to dilate the cervical os. A medium size sharp curette was inserted through the cervix into the uterine cavity and endometrium was curetted with a systematic back and forth movement in a 360 degree manner. All endometrial curettings will be sent to pathology for review. Instruments were removed from the vagina. Tenaculum site was noted to be hemostatic. Patient was transported to recovery room in stable condition. Patient will be discharged home when awake and ambulating. She was given postop instructions as well as instructions to follow-up in the office in 2 weeks at which time pathology will be reviewed. Condition: stable Disposition: same day Specimens:: 1. Endometrial curettings Complications:: None
== END 2023-05-30 09:10 | disposition home or self-care (01) ==
PROVIDERS: PCP Nurse Practitioner Family; Visit Provider Obstetrics & Gynecology
PROC: (CPT 58120; principal; 2023-05-30 07:30)
DX: N85.4 Malposition of uterus (principal); Z39.2 Encounter for routine postpartum follow-up; Z98.891 History of uterine scar from previous surgery; R10.2 Pelvic and perineal pain; O75.4 Other complications of obstetric surgery and procedures; R06.02 Shortness of breath; N85.00 Endometrial hyperplasia, unspecified; N17.9 Acute kidney failure, unspecified
CPT/HCPCS: 59160; 81025; J2405

== ENCOUNTER → 2023-06-07 06:06 | Outpatient (CLI) | payer SELFPAY ==
--- NOTE | 2023-06-07 06:17 | NM_ITS ---
APPROVED REPORT Exam: Nuclear Stress Test Indication: chest pain..soa..palpitations..fatigue..family hx Patient Location: Outpatient Stress Tech: Valentina Arceo [place] Tech:Melissa Weiss, PASHA RT(R)(N) Ht: 5 ft 10 in Wt: 202 lbs Bra Size: 34a HR: 70 bpm BP: 116/79 mmHg BSA: 2.10 m2 Rhythm: NSR TID: 1.05 BMI: 28.9 History: chest pain..soa..palpitations..fatigue..family hx.. Procedure: Patient exercised on Eric protocol 7:16 minutes and sec, resting heart rate 70 bpm, resting blood pressure 116/79 mmHg, with exercise maximum heart rate achived was 164 bpm which is 86 % of the maximum predicted heart rate and blood pressure was 140/80 mmHg. Test was stopped due to fatigue. Patient denied any complaint of chest pain. Patient has Average exercise capacity, achieved 10.1 METs of workload on treadmill, the blood pressure response to exercise was Normal. Patient is currently . Cardiac Stress and Resting SPECT Images: Cardiac Stress and Resting SPECT images were obtained using technetium 99m Myoview 31.3 mCi stress and 10.57 mCi at rest. This is a technically difficult study in the setting of significant overlap of soft tissue and diaphragm with the cardiac borders, as well as close proximity of the GI tract radiotracer uptake to the cardiac borders. These may affect the diagnostic interpretation of the study findings. Raw images also demonstrate incidental finding of mild radiotracer uptake in breast tissues bilaterally. Resting and stress imaging in supine position demonstrate a medium sized, moderate, fixed perfusion defect in the basal inferior wall, as well as in the basal anterior LV wall. These defects are no longer visualized with prone stress imaging, with the exception of persistence of a minimal perfusion defect anteriorly. These findings are suggestive suggestive of soft tissue attenuation and diaphragmatic attenuation. Gated imaging demonstrates normal global and regional LV systolic function. LVEF is calculated at 54%. Conclusion: This is a technically difficult study in the setting of significant overlap of soft tissue and diaphragm with the cardiac borders, as well as close proximity of the GI tract radiotracer uptake to the cardiac borders. These may affect the diagnostic interpretation of the study findings. Raw images also demonstrate incidental finding of mild radiotracer uptake in breast tissues bilaterally. Soft tissue attenuation and diaphragmatic attenuation are present. No definite fixed or reversible perfusion defect. Gated imaging demonstrates normal global and regional LV systolic function. LVEF is calculated at 54%. Electronically signed by : Siomara Hylton, 06/12/2023 00:30:28
--- NOTE | 2023-06-07 08:49 | CA_ITS ---
APPROVED REPORT Exam: Exercise Treadmill Technologist: Valentina Gale, Ht: 5 ft 10 in Wt: 203 lbs BSA: 2.10 m2 HR: 58 bpm BP: 100/66 mmHg Rhythm: NSR Stress Test Details Test: Eric HR Resting HR: 70 bpm Max Heart Rate (APMHR): 190 bpm Max HR Achieved: 164 bpm Target HR (85% APMHR): 162 bpm % of APMHR: 86 Recovery HR: 76 bpm HR response to stress: Normal HR response to stress BP Resting BP: 116.0/79 mmHg Max BP: 140/80 mmHg Recovery BP: 104.0/59.0 mmHg BP response to stress: Normal blood pressure response to stress. ECG Resting ECG: NSR, right axis deviation Stress ECG: No significant ST changes Arrhythmia: None Recovery ECG: No significant ST changes Recovery Arrhythmia: None Clinical Exercise duration: 07:16 min Highest Stage Achieved: III Exercise capacity: 10.1 METs Overall Exercise Capacity for Age: Average Stress ECG Conclusion The patient was able to exercise for a total of 7 minutes, 16 seconds. She achieved a total of 10.1 METS. She has average exercise capacity compared to age and sex matched peers. She has normal HR and BP response to exercise. Max HR: 164 % of PM: 86% Max BP: 140/80 METs: 10.1 Test stopped due to: SOA Symptoms: No CP. Arrhythmias/Ectopy: None ST-T Changes: Normal ST response to exercise Conclusion: Normal GXT. Myoview images reported sepatately. Test Summary REST . . . . . . . Sitting REST . . . . . . . Standing REST 04:15 0.0 0.0 70 . 116/ 79 . . Stage 1 01:00 10.0 1.7 105 . . . . Stage 1 02:00 10.0 1.7 124 . . . . Stage 1 03:00 10.0 1.7 122 . 138/ 80 . . Stage 2 01:00 12.0 2.5 132 . . . . Stage 2 02:00 12.0 2.5 151 . . . . Stage 2 03:00 12.0 2.5 157 . 140/ 80 . . Stage 3 01:00 14.0 3.4 160 . . . . Stage 3 01:16 14.0 3.4 160 . . . Stop exercise at 07:16 RECOVERY 01:00 0.0 0.0 120 . . . . RECOVERY 02:00 0.0 0.0 102 . 131/ 74 . . RECOVERY 03:00 0.0 0.0 93 . 131/ 74 . . RECOVERY 04:00 0.0 0.0 82 . 131/ 74 . . RECOVERY 05:00 0.0 0.0 76 . 131/ 74 . . RECOVERY 05:20 0.0 0.0 76 . 104/ 59 . . Electronically signed by : Siomara Hylton, 06/12/2023 00:19:30
== END ==
LOC: RAD 06:07
PROVIDERS: PCP Nurse Practitioner Family; Visit Provider Internal Medicine
DX: R00.2 Palpitations (principal); R06.02 Shortness of breath; R07.89 Other chest pain; R42 Dizziness and giddiness; R51.9 Headache, unspecified
CPT/HCPCS: 78452; 93017; A9502